=== PATIENT | female | born 1940 | race Caucasian/White ===

== ENCOUNTER 2024-12-14 13:58 | Inpatient (IN) | payer MEDICARE, OTHER ==
[~2024-12-14] VITALS: Ht 154.9 cm; Wt 48.8 kg
[2024-12-14 20:30] VITALS: BP 128/57; PULSE 72; RESP 18; TEMP 98.2; O2SAT 97
[2024-12-14] MEDS ORDERED: OxyCODONE HCL 5 MG IR TABLET PO PRN (21:30)
[2024-12-14] MEDS: HEPARIN SODIUM,PORCINE 5,000 UNITS/ML VIAL SQ SCH (21:50)
[2024-12-14] MEDS: SENNOSIDES 8.6 MG TABLET PO SCH (21:50)
[2024-12-14] MEDS: ACETAMINOPHEN 325 MG TABLET PO SCH (21:52)
[2024-12-14] MEDS: ASPIRIN 81 MG CHEWABLE TABLET PO SCH (21:53)
[2024-12-14] MEDS: MELATONIN 5 MG TABLET PO SCH (21:53)
[2024-12-14] MEDS: DOCUSATE SODIUM 100 MG CAPSULE PO SCH (21:54)
[2024-12-14] MEDS: ETHYL ALCOHOL 62% ANTISEPTIC NASAL SANITIZER 0.6 ML AMPUL NASAL SCH (21:54)
[2024-12-14] MEDS: BUDESONIDE/FORMOTEROL FUMARATE 80-4.5 MCG/PUFF 10.2 GM INHALER IH SCH (21:55)
[2024-12-14] MEDS: MONTELUKAST SODIUM 10 MG TABLET PO SCH (22:03)
[2024-12-14 22:45] VITALS: BP 144/56; PULSE 86; RESP 16; O2SAT 96
[2024-12-14 23:00] VITALS: BP 145/55; PULSE 85; RESP 16; O2SAT 96; O2SAT 97
[2024-12-15] MEDS: LEVOTHYROXINE SODIUM 150 MCG TABLET PO SCH (06:25)
[2024-12-15 06:53] LABS: ASPARTATE AMINOTRANSFERASE 48.0 U/L (15-37); CALCIUM, TOTAL 8.5 mg/dL (8.8-10.5); CREATININE 4.23 mg/dL (0.60-1.30); GLOMERULAR FILTR. RATE CALC 10.0 mL/min (>60); GLUCOSE,RANDOM 117.0 mg/dL (70-110); SODIUM SERUM 130.0 mmol/L (136-145); TOTAL PROTEIN, SERUM 5.8 g/dL (6.4-8.2); UREA NITROGEN, BLOOD 76.0 mg/dL (7-18)
[2024-12-15 06:55] LABS: PLATELET COUNT (AUTO) 296 K/uL (150-450); RED BLOOD CELL COUNT(AUTO) 2.31 MIL/uL (4.00-5.20); RED CELL DISTRIBUTION WIDTH 13.6 % (11.5-14.5); WHITE BLOOD COUNT (AUTO) 7.7 K/uL (4.5-11.0)
[2024-12-15 08:05] LABS: BAND NEUTROPHILS % (MANUAL) 3 % (0-5); EOSINOPHILS % (MANUAL) 3 % (1-6); LYMPHOCYTES % (MANUAL) 14 % (22-44); MONOCYTES % (MANUAL) 10 % (2-9); SEGMENTED NEUTROPHILS % 70 % (40-70)
[2024-12-15 08:06] LABS: RBC MORPHOLOGY COMMENT ABNORMAL R
[2024-12-15 08:10] VITALS: BP 139/49; PULSE 81; RESP 16; TEMP 97.7; O2SAT 95
[2024-12-15] MEDS: CLOPIDOGREL BISULFATE 75 MG TABLET PO SCH (08:54)
[2024-12-15] MEDS: FOLIC ACID/VIT B COMPLEX AND C TABLET PO SCH (08:54)
[2024-12-15] MEDS: MULTIVITAMINS, THERAPEUTIC TABLET PO SCH (08:55)
[2024-12-15] MEDS: CHOLECALCIFEROL (VIT D3) 2,000 UNITS [50 MCG] TABLET PO SCH (08:56)
[2024-12-15] MEDS: POLYETHYLENE GLYCOL 3350 17 GM PACKET PO SCH (08:59)
[2024-12-15] MEDS: DICLOFENAC SODIUM 1% 100 GM GEL [4GM] TP SCH (09:00)
[2024-12-15] MEDS ORDERED: GENTAMICIN SULFATE 0.1% 15 GM CREAM TP SCH (09:00)
[2024-12-15] MEDS: LIDOCAINE 5% TRANSDERMAL PATCH TD SCH ×2 (09:00→21:25)
[2024-12-15] MEDS: GENTAMICIN SULFATE 0.1% 15 GM CREAM TP SCH (10:50)
[2024-12-15] MEDS ORDERED: FOLIC ACID/VIT B COMPLEX AND C TABLET PO SCH (12:45)
[2024-12-15 19:30] VITALS: BP 139/49; PULSE 81; RESP 18; TEMP 97.7; O2SAT 95
[2024-12-15 19:50] VITALS: BP 139/49; PULSE 81; RESP 18; TEMP 97.7; O2SAT 95
[2024-12-15 20:00] VITALS: O2SAT 97
[2024-12-15 20:11] VITALS: BP 146/74; PULSE 89; RESP 18; TEMP 97.4; O2SAT 97
[2024-12-15] MEDS: ATORVASTATIN CALCIUM 20 MG TABLET PO SCH (20:55)
[2024-12-15] MEDS ORDERED: -LIDODERM PATCH NOTE- MISC SCH (21:00)
[2024-12-16 05:29] VITALS: BP 146/48; PULSE 80; RESP 16; TEMP 98.1; O2SAT 94
[2024-12-16 08:00] VITALS: BP 139/52; PULSE 86; RESP 18; TEMP 97.7; O2SAT 98
[2024-12-16] MEDS ORDERED: EPOETIN ALFA 10,000 UNITS/ML VIAL SQ SCH (09:00)
[2024-12-16] MEDS: -LIDODERM PATCH NOTE- MISC SCH (09:18)
[2024-12-16 12:49] VITALS: BP 164/59; PULSE 81; RESP 18; TEMP 97.5; O2SAT 98
[2024-12-16 13:04] VITALS: BP 162/66; PULSE 86
[2024-12-16] MEDS: LACTULOSE 20 GM/30 ML SOLUTION UDCUP PO PRN (16:01)
[2024-12-16 20:00] VITALS: O2SAT 96
[2024-12-16 21:00] VITALS: BP 138/59; PULSE 80; RESP 18; TEMP 97.7; O2SAT 96
[2024-12-17 08:00] VITALS: BP 142/47; PULSE 80; RESP 18; TEMP 97.9; O2SAT 98
[2024-12-17] MEDS: ONDANSETRON 4 MG TABLET PO PRN (13:35)
[2024-12-17] MEDS: FAMOTIDINE 20 MG TABLET PO SCH (17:48)
[2024-12-17 18:10] VITALS: BP 142/47; PULSE 80; RESP 18; TEMP 97.9; O2SAT 98
[2024-12-17 18:45] VITALS: BP 142/47; PULSE 80; RESP 18; TEMP 97.9; O2SAT 98
[2024-12-17 20:02] VITALS: BP 121/42; PULSE 89; RESP 18; TEMP 98.2; O2SAT 98
[2024-12-17 23:17] VITALS: O2SAT 99
[2024-12-18 08:00] VITALS: BP 103/72; PULSE 68; RESP 20; TEMP 97.5; O2SAT 96
[2024-12-18 17:00] VITALS: BP 139/42; PULSE 79; RESP 17; TEMP 97.5
[2024-12-18 18:00] VITALS: BP 138/42; PULSE 79; RESP 18; TEMP 97.7
[2024-12-18 18:30] VITALS: BP 138/42; PULSE 79; RESP 18; TEMP 97.7; O2SAT 98
[2024-12-18 21:36] VITALS: BP 149/51; PULSE 84; RESP 18; TEMP 97.9; O2SAT 99
[2024-12-19 01:30] VITALS: O2SAT 99
[2024-12-19 08:00] VITALS: BP 121/38; PULSE 77; RESP 18; TEMP 97.9; O2SAT 96
[2024-12-19 08:55] VITALS: BP 120/35; PULSE 76
[2024-12-19 10:05] VITALS: BP 137/42; PULSE 70
[2024-12-19 20:00] VITALS: BP 139/45; PULSE 90; RESP 18; TEMP 98.2; O2SAT 97
[2024-12-19 21:35] VITALS: BP 135/52; PULSE 80; RESP 18; TEMP 97.8
[2024-12-20 06:49] LABS: CALCIUM, TOTAL 8.4 mg/dL (8.8-10.5); CREATININE 4.28 mg/dL (0.60-1.30); GLOMERULAR FILTR. RATE CALC 10.0 mL/min (>60); GLUCOSE,RANDOM 116.0 mg/dL (70-110); SODIUM SERUM 131.0 mmol/L (136-145); UREA NITROGEN, BLOOD 79.0 mg/dL (7-18)
[2024-12-20 06:59] LABS: PLATELET COUNT (AUTO) 420 K/uL (150-450); RED BLOOD CELL COUNT(AUTO) 1.67 MIL/uL (4.00-5.20); RED CELL DISTRIBUTION WIDTH 13.9 % (11.5-14.5); WHITE BLOOD COUNT (AUTO) 9.0 K/uL (4.5-11.0)
[2024-12-20 08:00] VITALS: BP 147/47; PULSE 78; RESP 18; TEMP 97.7; O2SAT 95
[2024-12-20] MEDS: EPOETIN ALFA 10,000 UNITS/ML VIAL SQ SCH (08:24)
[2024-12-20 09:45] LABS: PLATELET COUNT (AUTO) 459 K/uL (150-450); RED BLOOD CELL COUNT(AUTO) 2.17 MIL/uL (4.00-5.20); RED CELL DISTRIBUTION WIDTH 14.5 % (11.5-14.5); WHITE BLOOD COUNT (AUTO) 12.8 K/uL (4.5-11.0)
[2024-12-20 10:06] LABS: RBC MORPHOLOGY COMMENT ABNORMAL RBC MORPH
[2024-12-20 10:13] LABS: RBC MORPHOLOGY COMMENT ABNORMAL RBC MORPH
[2024-12-20] MEDS: POTASSIUM CHLORIDE 10 MEQ ER TABLET PO ONE (11:30)
[2024-12-20 20:39] VITALS: BP 129/47; PULSE 86; RESP 18; TEMP 97.7; O2SAT 96
[2024-12-20 21:17] VITALS: O2SAT 96
[2024-12-21] VITALS (7 sets, daily range): BP systolic 123–149; BP diastolic 30–48; PULSE 76–97; RESP 18; TEMP 97.2–97.9; O2SAT 96–98
[2024-12-21 07:05] LABS: CALCIUM, TOTAL 8.5 mg/dL (8.8-10.5); CREATININE 4.41 mg/dL (0.60-1.30); GLOMERULAR FILTR. RATE CALC 10.0 mL/min (>60); GLUCOSE,RANDOM 120.0 mg/dL (70-110); SODIUM SERUM 132.0 mmol/L (136-145); UREA NITROGEN, BLOOD 85.0 mg/dL (7-18)
[2024-12-22] VITALS (25 sets, daily range): BP systolic 127–168; BP diastolic 37–53; PULSE 74–87; RESP 18; TEMP 97.7–98.4; O2SAT 96–100
[2024-12-22 06:09] LABS: CALCIUM, TOTAL 8.6 mg/dL (8.8-10.5); CREATININE 4.45 mg/dL (0.60-1.30); GLOMERULAR FILTR. RATE CALC 9.0 mL/min (>60); GLUCOSE,RANDOM 123.0 mg/dL (70-110); SODIUM SERUM 131.0 mmol/L (136-145); UREA NITROGEN, BLOOD 93.0 mg/dL (7-18)
[2024-12-22 07:18] LABS: PLATELET COUNT (AUTO) 430 K/uL (150-450); RED BLOOD CELL COUNT(AUTO) 1.42 MIL/uL (4.00-5.20); RED CELL DISTRIBUTION WIDTH 14.4 % (11.5-14.5); WHITE BLOOD COUNT (AUTO) 15.3 K/uL (4.5-11.0)
[2024-12-22 07:58] LABS: PLATELET COUNT (AUTO) 430 K/uL (150-450); RED BLOOD CELL COUNT(AUTO) 1.55 MIL/uL (4.00-5.20); RED CELL DISTRIBUTION WIDTH 15.0 % (11.5-14.5); WHITE BLOOD COUNT (AUTO) 16.7 K/uL (4.5-11.0)
[2024-12-22 08:18] LABS: BAND NEUTROPHILS % (MANUAL) 1 % (0-5); LYMPHOCYTES % (MANUAL) 13 % (22-44); METAMYELOCYTES % 4 % (0-0); MONOCYTES % (MANUAL) 5 % (2-9); RBC MORPHOLOGY COMMENT ABNORMAL RBC MORPH; SEGMENTED NEUTROPHILS % 77 % (40-70)
[2024-12-22] MEDS ORDERED: SODIUM CHLORIDE 0.9% 0 ML ONE (08:52)
[2024-12-22] MEDS ORDERED: SODIUM CHLORIDE 0.9% 500 ML IV ONE ×2 (08:54→13:33)
[2024-12-22 09:07] LABS: BAND NEUTROPHILS % (MANUAL) 3 % (0-5); LYMPHOCYTES % (MANUAL) 6 % (22-44); METAMYELOCYTES % 4 % (0-0); MONOCYTES % (MANUAL) 4 % (2-9); RBC MORPHOLOGY COMMENT ABNORMAL RBC MORPH; SEGMENTED NEUTROPHILS % 83 % (40-70)
[2024-12-22] MEDS: FUROSEMIDE 20 MG/2 ML VIAL IVP ONE (14:01)
[2024-12-22] MEDS: POTASSIUM CHLORIDE 10 MEQ ER TABLET PO ONE (14:06)
[2024-12-23] VITALS (12 sets, daily range): BP systolic 98–162; BP diastolic 33–76; PULSE 71–96; RESP 18–20; TEMP 97.2–98.6; O2SAT 96–100
[2024-12-23 06:32] LABS: PLATELET COUNT (AUTO) 347 K/uL (150-450); RED BLOOD CELL COUNT(AUTO) 2.61 MIL/uL (4.00-5.20); RED CELL DISTRIBUTION WIDTH 17.7 % (11.5-14.5); WHITE BLOOD COUNT (AUTO) 15.6 K/uL (4.5-11.0)
[2024-12-23 07:02] LABS: CALCIUM, TOTAL 8.6 mg/dL (8.8-10.5); CREATININE 4.52 mg/dL (0.60-1.30); GLOMERULAR FILTR. RATE CALC 9.0 mL/min (>60); GLUCOSE,RANDOM 116.0 mg/dL (70-110); SODIUM SERUM 131.0 mmol/L (136-145)
[2024-12-23 07:46] LABS: UREA NITROGEN, BLOOD 117.0 mg/dL (7-18)
[2024-12-23 08:25] LABS: BAND NEUTROPHILS % (MANUAL) 5 % (0-5); LYMPHOCYTES % (MANUAL) 26 % (22-44); METAMYELOCYTES % 2 % (0-0); MONOCYTES % (MANUAL) 2 % (2-9); NUCLEATED RED BLOOD CELLS 1.0 % (0.0-0.0); RBC MORPHOLOGY COMMENT NORMAL RBC MORPH; SEGMENTED NEUTROPHILS % 65 % (40-70)
[2024-12-23] MEDS: 0.9% SODIUM CHLORIDE 10 ML SYRINGE IVP SCH (09:44)
[2024-12-23] MEDS: PANTOPRAZOLE SODIUM 40 MG/VIAL IVP SCH (16:45)
[2024-12-23] MEDS: PANTOPRAZOLE SODIUM 40 MG DR TABLET PO SCH (18:13)
[2024-12-23] MEDS ORDERED: MIRTAZAPINE 15 MG TABLET PO SCH (21:00)
== END 2024-12-23 19:56 | disposition short-term general hospital (02) | DRG 559 ==
LOC: 2WR 20:37
PROVIDERS: ADMIT Physical Medicine & Rehabilitation; ATTEND Physical Medicine & Rehabilitation
PROC: 3E1M39Z Irrigation of Peritoneal Cavity using Dialysate, Percutaneous Approach (ICD-10-PCS; 2024-12-14)
PROC: 3E1M39Z Irrigation of Peritoneal Cavity using Dialysate, Percutaneous Approach (ICD-10-PCS; 2024-12-15)
PROC: 3E1M39Z Irrigation of Peritoneal Cavity using Dialysate, Percutaneous Approach (ICD-10-PCS; 2024-12-16)
PROC: 3E1M39Z Irrigation of Peritoneal Cavity using Dialysate, Percutaneous Approach (ICD-10-PCS; 2024-12-17)
PROC: 3E1M39Z Irrigation of Peritoneal Cavity using Dialysate, Percutaneous Approach (ICD-10-PCS; 2024-12-18)
PROC: 3E1M39Z Irrigation of Peritoneal Cavity using Dialysate, Percutaneous Approach (ICD-10-PCS; 2024-12-19)
PROC: 3E1M39Z Irrigation of Peritoneal Cavity using Dialysate, Percutaneous Approach (ICD-10-PCS; 2024-12-20)
PROC: 3E1M39Z Irrigation of Peritoneal Cavity using Dialysate, Percutaneous Approach (ICD-10-PCS; 2024-12-21)
PROC: 30233N1 Transfusion of Nonautologous Red Blood Cells into Peripheral Vein, Percutaneous Approach (ICD-10-PCS; principal; 2024-12-22)
PROC: 3E1M39Z Irrigation of Peritoneal Cavity using Dialysate, Percutaneous Approach (ICD-10-PCS; 2024-12-22)
PROC: 3E1M39Z Irrigation of Peritoneal Cavity using Dialysate, Percutaneous Approach (ICD-10-PCS; 2024-12-23)
DX: S72.091D Other fracture of head and neck of right femur, subsequent encounter for closed fracture with routine healing (principal); N18.6 End stage renal disease; I12.0 Hypertensive chronic kidney disease with stage 5 chronic kidney disease or end stage renal disease; E87.1 Hypo-osmolality and hyponatremia; Z74.09 Other reduced mobility; R26.9 Unspecified abnormalities of gait and mobility; M25.551 Pain in right hip; Z99.2 Dependence on renal dialysis; E03.9 Hypothyroidism, unspecified; I73.9 Peripheral vascular disease, unspecified; D64.9 Anemia, unspecified; M81.0 Age-related osteoporosis without current pathological fracture; J44.9 Chronic obstructive pulmonary disease, unspecified; E78.5 Hyperlipidemia, unspecified; I25.10 Atherosclerotic heart disease of native coronary artery without angina pectoris; E87.6 Hypokalemia; D72.829 Elevated white blood cell count, unspecified; K59.00 Constipation, unspecified; N81.4 Uterovaginal prolapse, unspecified; Z96.641 Presence of right artificial hip joint; R34 Anuria and oliguria; M79.661 Pain in right lower leg; D63.1 Anemia in chronic kidney disease; W18.39XD Other fall on same level, subsequent encounter
CPT/HCPCS: 74176; 80048; 80053; 82271; 84100; 85025; 86850; 86900; 86901; 86923; 87081; 90945; 93971; 97110; 97112; 97116; 97150; 97163; 97167; 97530; 97535; 99366; J0885; J1644; J1938; J2470; J7030; J7040; P9016; Q0162

== ENCOUNTER 2024-12-23 17:44 | Inpatient (IN) | payer MEDICARE, OTHER ==
[~2024-12-23] VITALS: Ht 154.9 cm; Wt 58.6 kg
[2024-12-23] MEDS ORDERED: OxyCODONE HCL/ACETAMINOPHEN 5-325 MG TABLET PO PRN (18:00)
[2024-12-23] MEDS ORDERED: MAGNESIUM HYDROXIDE SUSPENSION 30 ML UDCUP PO PRN (18:00)
[2024-12-23] MEDS ORDERED: ONDANSETRON HCL 4 MG/2 ML VIAL IVP PRN (18:00)
[2024-12-23] MEDS: PANTOPRAZOLE SODIUM 40 MG/VIAL IVP SCH (21:00)
[2024-12-23 21:11] VITALS: BP 134/39; PULSE 95; RESP 18; TEMP 98.1; O2SAT 97
[2024-12-23] MEDS: DOCUSATE SODIUM 100 MG CAPSULE PO SCH (22:00)
[2024-12-23 23:26] VITALS: BP 126/44; PULSE 88; RESP 18; TEMP 97.7; O2SAT 97
[2024-12-24] VITALS (17 sets, daily range): BP systolic 101–148; BP diastolic 40–90; PULSE 70–83; RESP 16–21; TEMP 97.3–99.6; O2SAT 97–99
[2024-12-24] MEDS: LEVOTHYROXINE SODIUM 150 MCG TABLET PO SCH (06:30)
[2024-12-24 07:01] LABS: PLATELET COUNT (AUTO) 317 K/uL (150-450); RED BLOOD CELL COUNT(AUTO) 2.00 MIL/uL (4.00-5.20); RED CELL DISTRIBUTION WIDTH 17.4 % (11.5-14.5); WHITE BLOOD COUNT (AUTO) 11.3 K/uL (4.5-11.0)
[2024-12-24 07:17] LABS: CALCIUM, TOTAL 8.7 mg/dL (8.8-10.5); CREATININE 4.35 mg/dL (0.60-1.30); GLOMERULAR FILTR. RATE CALC 10.0 mL/min (>60); GLUCOSE,RANDOM 114.0 mg/dL (70-110); SODIUM SERUM 132.0 mmol/L (136-145)
[2024-12-24 07:31] LABS: UREA NITROGEN, BLOOD 124.0 mg/dL (7-18)
[2024-12-24 07:34] LABS: BAND NEUTROPHILS % (MANUAL) 6 % (0-5); LYMPHOCYTES % (MANUAL) 15 % (22-44); MONOCYTES % (MANUAL) 5 % (2-9); SEGMENTED NEUTROPHILS % 74 % (40-70)
[2024-12-24 07:35] LABS: RBC MORPHOLOGY COMMENT ABNORMAL R
[2024-12-24] MEDS: FOLIC ACID/VIT B COMPLEX AND C TABLET PO SCH (09:00)
[2024-12-24] MEDS ORDERED: SODIUM CHLORIDE 0.9% 1,000 ML ONE ×2 (10:51→12:11)
[2024-12-24] MEDS ORDERED: PROPOFOL 1% 20 ML VIAL IVP ONE (12:00)
[2024-12-24] MEDS ORDERED: LIDOCAINE/PF 2% 5 ML VIAL ONE (12:00)
[2024-12-24] MEDS: SODIUM CHLORIDE 0.9% 1,000 ML IV ONE (14:12)
[2024-12-24] MEDS: FLUCONAZOLE 100 MG TABLET PO SCH (16:49)
[2024-12-24] MEDS: ACETAMINOPHEN 325 MG TABLET PO PRN (20:59)
[2024-12-25] VITALS (7 sets, daily range): BP systolic 101–159; BP diastolic 38–86; PULSE 70–76; RESP 16–18; TEMP 97.4–98.1; O2SAT 96–99
[2024-12-25 13:13] LABS: PLATELET COUNT (AUTO) 327 K/uL (150-450); RED BLOOD CELL COUNT(AUTO) 3.06 MIL/uL (4.00-5.20); RED CELL DISTRIBUTION WIDTH 16.5 % (11.5-14.5); WHITE BLOOD COUNT (AUTO) 11.5 K/uL (4.5-11.0)
[2024-12-25 13:23] LABS: CALCIUM, TOTAL 8.7 mg/dL (8.8-10.5); CREATININE 4.11 mg/dL (0.60-1.30); GLOMERULAR FILTR. RATE CALC 10.0 mL/min (>60); GLUCOSE,RANDOM 115.0 mg/dL (70-110); SODIUM SERUM 134.0 mmol/L (136-145)
[2024-12-25 13:25] LABS: UREA NITROGEN, BLOOD 101.0 mg/dL (7-18)
[2024-12-26 00:47] VITALS: BP 157/66; PULSE 69; RESP 19; TEMP 97.5; O2SAT 99
[2024-12-26 04:42] VITALS: BP 148/55; PULSE 66; RESP 19; TEMP 97.7; O2SAT 97
[2024-12-26 07:46] LABS: PLATELET COUNT (AUTO) 338 K/uL (150-450); RED BLOOD CELL COUNT(AUTO) 3.36 MIL/uL (4.00-5.20); RED CELL DISTRIBUTION WIDTH 16.5 % (11.5-14.5); WHITE BLOOD COUNT (AUTO) 8.7 K/uL (4.5-11.0)
[2024-12-26 07:56] LABS: CALCIUM, TOTAL 8.6 mg/dL (8.8-10.5); CREATININE 3.86 mg/dL (0.60-1.30); GLOMERULAR FILTR. RATE CALC 11.0 mL/min (>60); GLUCOSE,RANDOM 106.0 mg/dL (70-110); SODIUM SERUM 135.0 mmol/L (136-145); UREA NITROGEN, BLOOD 85.0 mg/dL (7-18)
[2024-12-26] MEDS: PANTOPRAZOLE SODIUM 40 MG DR TABLET PO SCH (08:39)
[2024-12-26 08:48] VITALS: BP 153/48; PULSE 66; RESP 17; TEMP 97.3; O2SAT 98
[2024-12-26 12:00] VITALS: BP 165/59; PULSE 72; RESP 16; TEMP 97.9; O2SAT 99
[2024-12-26 15:46] VITALS: BP 143/58; PULSE 68; RESP 15; TEMP 97.5; O2SAT 98
[2024-12-26 19:58] VITALS: BP 134/50; PULSE 73; RESP 18; TEMP 97.9; O2SAT 98
[2024-12-27 00:15] VITALS: BP 149/60; PULSE 71; RESP 18; O2SAT 97
[2024-12-27 03:32] VITALS: BP 155/55; PULSE 72; RESP 18; TEMP 98; O2SAT 99
[2024-12-27 07:20] VITALS: BP 147/53; PULSE 65; RESP 20; TEMP 97.5; O2SAT 99
[2024-12-27 07:39] LABS: PLATELET COUNT (AUTO) 376 K/uL (150-450); RED BLOOD CELL COUNT(AUTO) 3.46 MIL/uL (4.00-5.20); RED CELL DISTRIBUTION WIDTH 16.7 % (11.5-14.5); WHITE BLOOD COUNT (AUTO) 8.7 K/uL (4.5-11.0)
[2024-12-27 07:51] LABS: CALCIUM, TOTAL 8.5 mg/dL (8.8-10.5); CREATININE 3.93 mg/dL (0.60-1.30); GLOMERULAR FILTR. RATE CALC 11.0 mL/min (>60); GLUCOSE,RANDOM 112.0 mg/dL (70-110); SODIUM SERUM 135.0 mmol/L (136-145); UREA NITROGEN, BLOOD 78.0 mg/dL (7-18)
[2024-12-27 15:43] VITALS: BP 140/46; PULSE 70; RESP 18; TEMP 97.7; O2SAT 100
[2024-12-27] MEDS ORDERED: DOCU-385 PO (16:09)
[2024-12-27] MEDS ORDERED: FLUC40SU PO (16:10)
[2024-12-27] MEDS ORDERED: FOLI0.8T54 PO (16:10)
[2024-12-27] MEDS ORDERED: LEVO125T95 PO (16:11)
[2024-12-27] MEDS ORDERED: ACET-2247 PO (16:12)
[2024-12-27] MEDS ORDERED: PANT-31 PO (16:12)
[2024-12-27] MEDS ORDERED: MAGN-169 PO (16:13)
[2024-12-27] MEDS ORDERED: ONDA-104 PO (16:17)
[2024-12-27] MEDS ORDERED: PERCT PO (16:18)
[2024-12-27 17:17] LABS: APPEARANCE,URINE TURBID (CLEAR); GLUCOSE, URINE (UA) NEGATIVE (NEGATIVE); LEUKOCYTE ESTERASE ,URINE LARGE (NEGATIVE); NITRATE,URINE NEGATIVE (NEGATIVE); OCCULT BLOOD,URINE SMALL (NEGATIVE); SPECIFIC GRAVITIY, URINE 1.018 (1.003-1.030)
[2024-12-27 17:31] LABS: SQUAMOUS EPITHELIAL CELL,UR Few /LPF (None Seen)
[2024-12-27] MEDS ORDERED: LEVO150 PO (18:48)
[2024-12-27] MEDS ORDERED: FLUC100T68 PO (18:48)
[2024-12-27 20:15] VITALS: BP 140/46; PULSE 70; RESP 18; TEMP 97.7; O2SAT 100
[2024-12-27 20:35] VITALS: BP 140/46; PULSE 70; RESP 18; TEMP 97.7
== END 2024-12-27 18:18 | DRG 377 ==
LOC: 5N 18:14 → 4E 12-26 17:55
PROVIDERS: ADMIT Internal Medicine; ATTEND Internal Medicine
PROC: 30233N1 Transfusion of Nonautologous Red Blood Cells into Peripheral Vein, Percutaneous Approach (ICD-10-PCS; 2024-12-24)
PROC: 05HB33Z Insertion of Infusion Device into Right Basilic Vein, Percutaneous Approach (ICD-10-PCS; 2024-12-24)
PROC: 3E1M39Z Irrigation of Peritoneal Cavity using Dialysate, Percutaneous Approach (ICD-10-PCS; 2024-12-24)
PROC: B54MZZA Ultrasonography of Right Upper Extremity Veins, Guidance (ICD-10-PCS; 2024-12-24)
PROC: 0DJ08ZZ Inspection of Upper Intestinal Tract, Via Natural or Artificial Opening Endoscopic (ICD-10-PCS; principal; 2024-12-24 14:45)
PROC: 3E1M39Z Irrigation of Peritoneal Cavity using Dialysate, Percutaneous Approach (ICD-10-PCS; 2024-12-25)
PROC: 3E1M39Z Irrigation of Peritoneal Cavity using Dialysate, Percutaneous Approach (ICD-10-PCS; 2024-12-26)
PROC: 3E1M39Z Irrigation of Peritoneal Cavity using Dialysate, Percutaneous Approach (ICD-10-PCS; 2024-12-27)
DX: K29.01 Acute gastritis with bleeding (principal); N18.6 End stage renal disease; B37.81 Candidal esophagitis; D62 Acute posthemorrhagic anemia; E87.1 Hypo-osmolality and hyponatremia; I12.0 Hypertensive chronic kidney disease with stage 5 chronic kidney disease or end stage renal disease; D63.8 Anemia in other chronic diseases classified elsewhere; E03.9 Hypothyroidism, unspecified; E87.6 Hypokalemia; Z99.2 Dependence on renal dialysis; Z82.49 Family history of ischemic heart disease and other diseases of the circulatory system; Z91.040 Latex allergy status
CPT/HCPCS: 36569; 76937; 80048; 81001; 85018; 85025; 86850; 86900; 86901; 86923; 87077; 87081; 87086; 90945; 97110; 97162; 97167; 97530; 97535; G0378; J2470; J2704; J3490; J7030; P9016

== ENCOUNTER 2024-12-27 16:03 | Inpatient (IN) | payer MEDICARE, OTHER ==
[~2024-12-27] VITALS: Ht 154.9 cm; Wt 46.7 kg
[2024-12-27] MEDS ORDERED: DOCU-385 PO (16:09)
[2024-12-27] MEDS ORDERED: FOLI0.8T54 PO (16:10)
[2024-12-27] MEDS ORDERED: FLUC40SU PO (16:10)
[2024-12-27] MEDS ORDERED: LEVO125T95 PO (16:11)
[2024-12-27] MEDS ORDERED: PANT-31 PO (16:12)
[2024-12-27] MEDS ORDERED: ACET-2247 PO (16:12)
[2024-12-27] MEDS ORDERED: MAGN-169 PO (16:13)
[2024-12-27] MEDS ORDERED: ONDA-104 PO (16:17)
[2024-12-27] MEDS ORDERED: PERCT PO (16:18)
[2024-12-27 18:40] VITALS: BP 146/48; PULSE 72; RESP 18; TEMP 98.1; O2SAT 98
[2024-12-27] MEDS ORDERED: MAGNESIUM HYDROXIDE SUSPENSION 30 ML UDCUP PO PRN (18:45)
[2024-12-27] MEDS ORDERED: OxyCODONE HCL/ACETAMINOPHEN 5-325 MG TABLET PO PRN (18:45)
[2024-12-27] MEDS ORDERED: FLUC100T68 PO (18:48)
[2024-12-27] MEDS ORDERED: LEVO150 PO (18:48)
[2024-12-27 20:00] VITALS: BP 147/47; PULSE 71; RESP 18; TEMP 97.9; O2SAT 98
[2024-12-27] MEDS: DOCUSATE SODIUM 100 MG CAPSULE PO SCH (21:00)
[2024-12-27] MEDS: MELATONIN 5 MG TABLET PO PRN (21:40)
[2024-12-27] MEDS: ETHYL ALCOHOL 62% ANTISEPTIC NASAL SANITIZER 0.6 ML AMPUL NASAL SCH (21:40)
[2024-12-27] MEDS: PANTOPRAZOLE SODIUM 40 MG DR TABLET PO SCH (21:40)
[2024-12-27] MEDS: ACETAMINOPHEN 325 MG TABLET PO PRN (21:40)
[2024-12-27] MEDS: 0.9% SODIUM CHLORIDE 10 ML SYRINGE IVP SCH (21:46)
[2024-12-28] MEDS: LEVOTHYROXINE SODIUM 150 MCG TABLET PO SCH (06:27)
[2024-12-28 08:00] VITALS: BP 144/54; PULSE 68; RESP 18; TEMP 97.7; O2SAT 96
[2024-12-28 08:25] LABS: RED BLOOD CELL COUNT(AUTO) 3.32 MIL/uL (4.00-5.20)
[2024-12-28] MEDS: ONDANSETRON 4 MG TABLET PO PRN (08:40)
[2024-12-28 08:46] LABS: PLATELET COUNT (AUTO) 382 K/uL (150-450); RED CELL DISTRIBUTION WIDTH 16.3 % (11.5-14.5); WHITE BLOOD COUNT (AUTO) 8.4 K/uL (4.5-11.0)
[2024-12-28 08:56] LABS: ASPARTATE AMINOTRANSFERASE 23.0 U/L (15-37); CALCIUM, TOTAL 8.2 mg/dL (8.8-10.5); CREATININE 3.83 mg/dL (0.60-1.30); GLOMERULAR FILTR. RATE CALC 11.0 mL/min (>60); GLUCOSE,RANDOM 122.0 mg/dL (70-110); SODIUM SERUM 135.0 mmol/L (136-145); TOTAL PROTEIN, SERUM 5.4 g/dL (6.4-8.2); UREA NITROGEN, BLOOD 65.0 mg/dL (7-18)
[2024-12-28] MEDS: FOLIC ACID/VIT B COMPLEX AND C TABLET PO SCH (09:14)
[2024-12-28] MEDS: FLUCONAZOLE 100 MG TABLET PO SCH (09:14)
[2024-12-28] MEDS: POTASSIUM CHLORIDE 20 MEQ ER TABLET PO ONE (11:33)
[2024-12-28 20:00] VITALS: BP 147/46; PULSE 73; RESP 18; TEMP 98.2; O2SAT 98
[2024-12-28 20:10] VITALS: BP 147/46; PULSE 74; RESP 17; TEMP 98.2; O2SAT 97
[2024-12-29 06:33] LABS: CALCIUM, TOTAL 7.9 mg/dL (8.8-10.5); CREATININE 4.45 mg/dL (0.60-1.30); GLOMERULAR FILTR. RATE CALC 9.0 mL/min (>60); GLUCOSE,RANDOM 127.0 mg/dL (70-110); SODIUM SERUM 136.0 mmol/L (136-145); UREA NITROGEN, BLOOD 63.0 mg/dL (7-18)
[2024-12-29 08:00] VITALS: BP 140/47; PULSE 74; RESP 18; TEMP 97.5; O2SAT 99
[2024-12-29] MEDS: MUPIROCIN CALCIUM 2% 22 GM OINTMENT NASAL SCH (08:34)
[2024-12-29] MEDS: HEPARIN SODIUM,PORCINE 5,000 UNITS/ML VIAL SQ SCH (11:07)
[2024-12-29 14:30] VITALS: BP 126/59; PULSE 79
[2024-12-29 20:00] VITALS: BP 122/60; PULSE 81; TEMP 98.2
[2024-12-29 21:45] LABS: APPEARANCE,URINE TURBID (CLEAR); GLUCOSE, URINE (UA) NEGATIVE (NEGATIVE); LEUKOCYTE ESTERASE ,URINE LARGE (NEGATIVE); NITRATE,URINE NEGATIVE (NEGATIVE); OCCULT BLOOD,URINE TRACE (NEGATIVE); SPECIFIC GRAVITIY, URINE 1.016 (1.003-1.030)
[2024-12-29 21:52] LABS: SQUAMOUS EPITHELIAL CELL,UR Moderate /LPF (None Seen)
[2024-12-29 21:56] VITALS: O2SAT 97
[2024-12-30 08:30] VITALS: BP 121/45; PULSE 69; RESP 18; TEMP 97.9; O2SAT 98
[2024-12-30] MEDS ORDERED: SODIUM CHLORIDE 0.9% 250 ML IV ONE (09:11)
[2024-12-30] MEDS: ATORVASTATIN CALCIUM 20 MG TABLET PO SCH (09:18)
[2024-12-30] MEDS: CefTRIAXone 1 GM/DEXTROSE 50 ML IV SCH (09:57)
[2024-12-30 20:30] VITALS: BP 149/47; PULSE 71; RESP 19; TEMP 97.5; O2SAT 98
[2024-12-30 23:58] VITALS: O2SAT 98
[2024-12-31 08:00] VITALS: BP 141/46; PULSE 74; RESP 18; TEMP 98.1; O2SAT 98
[2024-12-31] MEDS: NYSTATIN 500,000 UNITS/5 ML SUSPENSION UDCUP PO SCH (12:14)
[2024-12-31 17:00] VITALS: BP 131/113; PULSE 115; RESP 18; TEMP 98.1
[2024-12-31 17:20] VITALS: BP 145/56; PULSE 72; RESP 18; TEMP 98
[2024-12-31 19:52] VITALS: BP 140/51; PULSE 75; RESP 18; TEMP 97.5; O2SAT 98
[2025-01-01 02:16] VITALS: O2SAT 98
[2025-01-01 08:00] VITALS: BP 128/49; PULSE 72; RESP 18; TEMP 97.5; O2SAT 100
[2025-01-01 10:15] LABS: PLATELET COUNT (AUTO) 393 K/uL (150-450); RED BLOOD CELL COUNT(AUTO) 3.07 MIL/uL (4.00-5.20); RED CELL DISTRIBUTION WIDTH 21.5 % (11.5-14.5); WHITE BLOOD COUNT (AUTO) 7.4 K/uL (4.5-11.0)
[2025-01-01 10:40] LABS: CALCIUM, TOTAL 8.0 mg/dL (8.8-10.5); CREATININE 4.39 mg/dL (0.60-1.30); GLOMERULAR FILTR. RATE CALC 10.0 mL/min (>60); GLUCOSE,RANDOM 113.0 mg/dL (70-110); SODIUM SERUM 130.0 mmol/L (136-145); UREA NITROGEN, BLOOD 52.0 mg/dL (7-18)
[2025-01-01 10:58] LABS: PHOSPHORUS 4.9 mg/dL (2.5-4.9)
[2025-01-01] MEDS: DICLOFENAC SODIUM 1% 100 GM GEL [4GM] TP SCH (11:55)
[2025-01-01] MEDS: POTASSIUM CHLORIDE 20 MEQ ER TABLET PO ONE ×2 (17:10→20:58)
[2025-01-01 20:10] VITALS: BP 149/78; PULSE 83; RESP 18; TEMP 97.9; O2SAT 99
[2025-01-02 08:00] VITALS: BP 146/56; PULSE 85; RESP 18; TEMP 97.9; O2SAT 95
[2025-01-02] MEDS: DOCUSATE SODIUM 250 MG CAPSULE PO SCH (09:08)
[2025-01-02] MEDS: BISACODYL 10 MG RECTAL RECTAL SUPPOSITORY PR SCH (13:45)
[2025-01-02 20:00] VITALS: BP 135/72; PULSE 77; RESP 18; TEMP 97.5; O2SAT 98
[2025-01-03 08:00] VITALS: BP 113/87; PULSE 71; RESP 18; TEMP 98.4; O2SAT 97
[2025-01-03 09:12] LABS: PLATELET COUNT (AUTO) 390 K/uL (150-450); RED BLOOD CELL COUNT(AUTO) 2.97 MIL/uL (4.00-5.20); RED CELL DISTRIBUTION WIDTH 20.1 % (11.5-14.5); WHITE BLOOD COUNT (AUTO) 5.7 K/uL (4.5-11.0)
[2025-01-03 09:14] LABS: RBC MORPHOLOGY COMMENT ABNORMAL RBC MORPH
[2025-01-03 09:29] LABS: CALCIUM, TOTAL 8.2 mg/dL (8.8-10.5); CREATININE 4.32 mg/dL (0.60-1.30); GLOMERULAR FILTR. RATE CALC 10.0 mL/min (>60); GLUCOSE,RANDOM 101.0 mg/dL (70-110); SODIUM SERUM 130.0 mmol/L (136-145); UREA NITROGEN, BLOOD 50.0 mg/dL (7-18)
[2025-01-03 19:30] VITALS: BP 140/62; PULSE 52; RESP 18; TEMP 97.7
[2025-01-03 19:50] VITALS: BP 142/52; PULSE 52; RESP 18; TEMP 97.7
[2025-01-03 20:00] VITALS: BP 139/45; PULSE 81; RESP 16; TEMP 97.5; O2SAT 97; O2SAT 99
[2025-01-03] MEDS ORDERED: OxyCODONE HCL/ACETAMINOPHEN 5-325 MG TABLET PO SCH (21:00)
[2025-01-03] MEDS: SENNOSIDES 8.6 MG TABLET PO PRN (21:09)
[2025-01-04 08:00] VITALS: BP 141/55; PULSE 79; RESP 19; TEMP 98.1; O2SAT 98
[2025-01-04] MEDS ORDERED: LACTULOSE 20 GM/30 ML SOLUTION UDCUP PO PRN (08:15)
[2025-01-04] MEDS ORDERED: BISACODYL 5 MG EC TABLET PO PRN (08:15)
[2025-01-04] MEDS: PANTOPRAZOLE SODIUM 40 MG DR TABLET PO SCH (08:40)
[2025-01-04 20:06] VITALS: BP 134/46; PULSE 82; RESP 18; TEMP 97.3; O2SAT 98
[2025-01-04] MEDS: DICLOFENAC SODIUM 1% 100 GM GEL [4GM] TP SCH (20:16)
[2025-01-04 22:50] VITALS: O2SAT 98
[2025-01-05] MEDS ORDERED: DICL100G60 TP (05:10)
[2025-01-05] MEDS ORDERED: AMLO2.5T96 PO ×2 (05:12→09:58)
[2025-01-05] MEDS ORDERED: NYST100033 PO (05:13)
[2025-01-05] MEDS ORDERED: PANT-31 PO ×2 (05:16→09:58)
[2025-01-05 08:00] VITALS: BP 155/46; PULSE 74; RESP 19; TEMP 97.9; O2SAT 98
[2025-01-05] MEDS ORDERED: ACET-3862 PO (09:58)
[2025-01-05] MEDS ORDERED: DOCU-412 PO (09:58)
[2025-01-05] MEDS ORDERED: ATOR20TA65 PO (09:58)
[2025-01-05] MEDS ORDERED: SENN-374 PO (09:58)
[2025-01-05] MEDS ORDERED: FOLI0.8T54 PO (09:58)
[2025-01-05] MEDS ORDERED: LEVO150 PO (09:58)
[2025-01-05 19:43] VITALS: BP 139/68; PULSE 86; RESP 18; TEMP 98.1; O2SAT 98
[2025-01-05 22:11] VITALS: O2SAT 98
[2025-01-06 07:13] LABS: CALCIUM, TOTAL 8.4 mg/dL (8.8-10.5); CREATININE 4.13 mg/dL (0.60-1.30); GLOMERULAR FILTR. RATE CALC 10.0 mL/min (>60); GLUCOSE,RANDOM 114.0 mg/dL (70-110); SODIUM SERUM 134.0 mmol/L (136-145); UREA NITROGEN, BLOOD 50.0 mg/dL (7-18)
[2025-01-06 08:00] VITALS: BP 122/88; PULSE 84; RESP 18; TEMP 97.7; O2SAT 99
== END 2025-01-06 14:35 | disposition home health service (06) | DRG 559 ==
LOC: 2WR 20:59
PROVIDERS: ADMIT Physical Medicine & Rehabilitation; ATTEND Physical Medicine & Rehabilitation
PROC: 3E1M39Z Irrigation of Peritoneal Cavity using Dialysate, Percutaneous Approach (ICD-10-PCS; principal; 2024-12-28)
PROC: 3E1M39Z Irrigation of Peritoneal Cavity using Dialysate, Percutaneous Approach (ICD-10-PCS; 2024-12-30)
PROC: 3E1M39Z Irrigation of Peritoneal Cavity using Dialysate, Percutaneous Approach (ICD-10-PCS; 2024-12-31)
PROC: 3E1M39Z Irrigation of Peritoneal Cavity using Dialysate, Percutaneous Approach (ICD-10-PCS; 2025-01-02)
PROC: 3E1M39Z Irrigation of Peritoneal Cavity using Dialysate, Percutaneous Approach (ICD-10-PCS; 2025-01-03)
PROC: 3E1M39Z Irrigation of Peritoneal Cavity using Dialysate, Percutaneous Approach (ICD-10-PCS; 2025-01-04)
PROC: 3E1M39Z Irrigation of Peritoneal Cavity using Dialysate, Percutaneous Approach (ICD-10-PCS; 2025-01-05)
DX: S72.001D Fracture of unspecified part of neck of right femur, subsequent encounter for closed fracture with routine healing (principal); N18.6 End stage renal disease; B37.81 Candidal esophagitis; I12.0 Hypertensive chronic kidney disease with stage 5 chronic kidney disease or end stage renal disease; E87.1 Hypo-osmolality and hyponatremia; D63.8 Anemia in other chronic diseases classified elsewhere; N39.0 Urinary tract infection, site not specified; Z99.2 Dependence on renal dialysis; B96.20 Unspecified Escherichia coli [E. coli] as the cause of diseases classified elsewhere; E03.9 Hypothyroidism, unspecified; I73.9 Peripheral vascular disease, unspecified; J44.9 Chronic obstructive pulmonary disease, unspecified; Z74.09 Other reduced mobility; R26.9 Unspecified abnormalities of gait and mobility; K29.60 Other gastritis without bleeding; M81.0 Age-related osteoporosis without current pathological fracture; E87.6 Hypokalemia; N81.4 Uterovaginal prolapse, unspecified; I25.10 Atherosclerotic heart disease of native coronary artery without angina pectoris; E78.00 Pure hypercholesterolemia, unspecified; X58.XXXD Exposure to other specified factors, subsequent encounter; R32 Unspecified urinary incontinence; Z22.322 Carrier or suspected carrier of Methicillin resistant Staphylococcus aureus; Z74.1 Need for assistance with personal care
CPT/HCPCS: 80048; 80053; 81001; 83735; 84100; 84132; 85025; 87077; 87081; 87086; 87186; 90945; 93970; 97110; 97112; 97116; 97163; 97167; 97530; 97535; 99366; J0696; J1644; J7050; Q0162